=== PATIENT | male | born 1940 | race Caucasian/White ===

== ENCOUNTER 2018-04-05 19:27 | Inpatient (IN) ==
--- NOTE | 2018-04-05 19:48 | ED ---
HPI General Chief Complaint: Psychiatric Symptoms Stated Complaint: Psych eval [facility] Time Seen by Provider: 04/05/18 19:44 Source: patient and police Mode of arrival: ambulatory Limitations: no limitations History of Present Illness HPI Narrative: Patient presents to our facility under a [place] act by the police department. Patient has a history of dementia and PTSD. Ger got into an argument with his and told his that he was going to shoot himself in the face with a gun. Patient has access to multiple guns at his house. States that his took away his shotgun ger complaint: Reports suicidal ideation Onset (ago): hour(s) (3) Duration: constant History of same: No Relieving factors: none Exacerbating factors: none Context: Denies recent alcohol abuse, recent drug abuse and not taking psychiatric medications Associated psychiatric symptoms: Reports none Associated symptoms: Reports denies other symptoms Treatments prior to arrival: Reports none Related Data Home Medications Medication Instructions Recorded Confirmed amlodipine 5 mg PO BID 04/05/18 04/05/18 carbamazepine (mood stabiliz) 100 mg PO BID 04/05/18 04/05/18 febuxostat 40 mg PO DAILY 04/05/18 04/05/18 gabapentin 300 mg PO HS 04/05/18 04/05/18 glipizide 10 mg PO DAILY 04/05/18 04/05/18 isosorbide mononitrate 30 mg PO DAILY 04/05/18 04/05/18 lorazepam [Ativan] 0.5 mg PO Q4HR 04/05/18 04/05/18 pantoprazole 40 mg PO BID 04/05/18 04/05/18 psyllium husk [Metamucil] 0.4 g PO DAILY 04/05/18 04/05/18 sotalol 80 mg PO BID 04/05/18 04/05/18 warfarin 4 mg PO 2XWEEK 04/05/18 04/05/18 warfarin 6 mg PO 5XW 04/05/18 04/05/18 Allergies Allergy/AdvReac Type Severity Reaction Status Date / Time gemfibrozil Allergy Cramping Verified 04/05/18 20:16 of the Muscles niacin Allergy Tingling Verified 04/05/18 19:43 [From Niaspan Extended-Release] quetiapine Allergy Agitation Verified 04/05/18 20:16 donepezil [From Aricept] AdvReac Gastrointestinal Verified 04/05/18 20:43 Upset [facility] Medical History Medical History Afib (Acute) Cataract of both eyes (Acute) Hypertension (Acute) Kidney stones (Acute) Melanoma (Acute) Pacemaker (Acute) Transfusion history (Acute) Surgical History Surgical History H/O cardiac radiofrequency ablation (Acute) History of abdominal surgery (Acute) History of bilateral knee replacement (Acute) Social History Social History Substance History: No History of Abuse Second Hand Smoke Exposure: No Smoking Status: Never smoker How Often Do You Have a Drink Containing Alcohol: Never Recent Travel in [facility] within the Last 8 Weeks: No Recent Out of Country Travel within the Last 8 Weeks: No Exam HENMT Head: normocephalic and atraumatic Nose: no nasal discharge and no epistaxis Mouth: moist mucous membranes Eyes Sclera: normal sclerae Pupils: PERRL Neck Neck: trachea midline and no JVD Resp Effort & Inspection: no use of accessory muscles Auscultation: clear to auscultation bilaterally Cardio Rate: regular rate Rhythm: regular rhythm Heart Sounds: no murmurs GI Inspection: non-distended Palpation: soft, no hepatosplenomegaly and nontender Skin General: dry skin (warm) and other (superficial anterior abrasion to the right knee ) Neuro General: alert and awake Cranial Nerves: other Speech: speech normal Motor: no movement abnormalities noted Extrem General: normal to inspection, no clubbing, no cyanosis and no edema Psych Mood: congruent mood Affect: normal affect Judgment: judgment good Course Initial Documented Vital Signs Temperature 98.2 F 04/05/18 19:32 Pulse Rate 67 04/05/18 19:32 Respiratory Rate 18 04/05/18 19:32 Blood Pressure 186/88 H 04/05/18 19:32 Pulse Oximetry 97 04/05/18 19:32 Last Documented Vital Signs Temperature 98.6 F 04/06/18 06:00 Pulse Rate 60 04/06/18 06:00 Respiratory Rate 18 04/06/18 06:00 Blood Pressure 119/75 04/06/18 06:00 Pulse Oximetry 97 04/06/18 06:00 Medical Decision Making MDM Narrative Medical decision making narrative: Patient presents to our facility under a [place] act by the police department. Patient has a history of dementia and PTSD. Ger got into an argument with his and told his that he was going to shoot himself in the face with a gun. Patient has access to multiple guns at his house. States that his took away his shotgun tonight Patient is a blood pressure of 119/75, pulse is 60, temperature is 98.6, O2 sat is 97 on room air physcial exam is unremarkable except for patient has a superficial abrasion to the right knee that he states happened while getting into the police officers car Patient received basic lab work along with a urine drug tox screen Lab work is unremarkable. Patient is medically cleared at 2330 Medical Screen Exam Complete: Yes Emergency Medical Condition: Yes Lab Data Lab results reviewed: Yes I reviewed the patient's lab results. Result diagrams: 04/05/18 19:45 04/05/18 19:45 Lab Results 04/05/18 04/05/18 04/05/18 Range/Units 19:45 19:45 19:45 WBC 5.0 (4.0-11.0) th/mm3 RBC 5.06 (4.50-5.90) mil/mm3 Hgb 16.0 (13.0-17.0) gm/dL Hct 45.0 (39.0-51.0) % MCV 89.0 (80.0-100.0) fL MCH 31.7 (27.0-34.0) pg MCHC 35.6 (32.0-36.0) % RDW 14.1 (11.6-17.2) % Plt Count 187 (150-450) th/mm3 MPV 8.0 (7.0-11.0) fL Neut % (Auto) 52.1 (16.0-70.0) % Lymph % (Auto) 36.3 (9.0-44.0) % [place] % (Auto) 7.3 (0.0-8.0) % Eos % (Auto) 2.8 (0.0-4.0) % Baso % (Auto) 1.5 (0.0-2.0) % Neut # (Auto) 2.6 (1.8-7.7) th/mm3 Lymph # (Auto) 1.8 (1.0-4.8) th/mm3 [place] # (Auto) 0.4 (0.0-0.9) th/mm3 Eos # (Auto) 0.1 (0.0-0.4) th/mm3 Baso # (Auto) 0.1 (0.0-0.2) th/mm3 WBC Differential . Differential Comment Auto diff final PT (9.8-11.6) sec INR Ratio APTT (23.4-31.7) sec Sodium 137 (136-145) meq/L Potassium 4.6 (3.5-5.1) meq/L Chloride 101 (98-107) meq/L Carbon Dioxide 30.1 (21.0-32.0) meq/L Anion Gap 6 (5-15) meq/L BUN 18 (7-18) mg/dL Creatinine 1.59 H (0.60-1.30) mg/dL Estimated GFR 42 L (>89) mL/min Random Glucose 103 (74-106) mg/dL Calcium 10.1 (8.5-10.1) mg/dL Magnesium 1.9 (1.5-2.5) mg/dL Total Bilirubin 0.5 (0.2-1.0) mg/dL AST 32 (15-37) U/L ALT 21 (12-78) U/L Alkaline Phosphatase 77 (45-117) U/L Total Protein 8.6 H (6.4-8.2) g/dL Albumin 4.4 (3.4-5.0) g/dL TSH 9.210 H (0.358-3.740) uIU/mL Salicylates Less than 1.7 L (2.8-20.0) mg/dL Urine Opiates Screen (Neg) Acetaminophen Less than 2.0 L (10.0-30.0) mcg/mL Ur Barbiturates Screen (Neg) Ur Amphetamines Screen (Neg) U Benzodiazepines Scrn (Neg) Urine Cocaine Screen (Neg) U Cannabinoids Screen (Neg) Serum Alcohol Less than 3 (0-5) mg/dL 04/05/18 04/05/18 Range/Units 19:45 21:35 WBC (4.0-11.0) th/mm3 RBC (4.50-5.90) mil/mm3 Hgb (13.0-17.0) gm/dL Hct (39.0-51.0) % MCV (80.0-100.0) fL MCH (27.0-34.0) pg MCHC (32.0-36.0) % RDW (11.6-17.2) % Plt Count (150-450) th/mm3 MPV (7.0-11.0) fL Neut % (Auto) (16.0-70.0) % Lymph % (Auto) (9.0-44.0) % [place] % (Auto) (0.0-8.0) % Eos % (Auto) (0.0-4.0) % Baso % (Auto) (0.0-2.0) % Neut # (Auto) (1.8-7.7) th/mm3 Lymph # (Auto) (1.0-4.8) th/mm3 [place] # (Auto) (0.0-0.9) th/mm3 Eos # (Auto) (0.0-0.4) th/mm3 Baso # (Auto) (0.0-0.2) th/mm3 WBC Differential Differential Comment PT 25.6 H (9.8-11.6) sec INR 2.5 Ratio APTT 39.4 H (23.4-31.7) sec Sodium (136-145) meq/L Potassium (3.5-5.1) meq/L Chloride (98-107) meq/L Carbon Dioxide (21.0-32.0) meq/L Anion Gap (5-15) meq/L BUN (7-18) mg/dL Creatinine (0.60-1.30) mg/dL Estimated GFR (>89) mL/min Random Glucose (74-106) mg/dL Calcium (8.5-10.1) mg/dL Magnesium (1.5-2.5) mg/dL Total Bilirubin (0.2-1.0) mg/dL AST (15-37) U/L ALT (12-78) U/L Alkaline Phosphatase (45-117) U/L Total Protein (6.4-8.2) g/dL Albumin (3.4-5.0) g/dL TSH (0.358-3.740) uIU/mL Salicylates (2.8-20.0) mg/dL Urine Opiates Screen Neg (Neg) Acetaminophen (10.0-30.0) mcg/mL Ur Barbiturates Screen Neg (Neg) Ur Amphetamines Screen Neg (Neg) U Benzodiazepines Scrn Neg (Neg) Urine Cocaine Screen Neg (Neg) U Cannabinoids Screen Neg (Neg) Serum Alcohol (0-5) mg/dL Discharge Plan Discharge Disposition Patient Disposition: Sign Out(ED Internal Use Only) Discharge Condition Condition: Stable Discharge Order Discharge Orders: ED Use Only Admit Order (Routine); Ordered 04/05/18 Ordered By: Law Mckinley Discharge Details Diagnosis: Suicidal ideation, Post traumatic stress disorder (PTSD) Physicians Team ED Provider: Osmel Brandt ED Midlevel Provider: Khushi Phillips Primary Care Provider: [facility],Physician 's Attending Provider: Law Mckinley Other Providers: Kelsie Carter Discharge Interventions Interventions: Vital Signs Last Done: 04/05/18 23:29 ED Discharge Assessment Last Done: 04/06/18 00:08 Status ED Status: Left Department Discharge Information Discharge Date/Time: 04/06/18 00:09
[2018-04-05 20:53] LABS: Baso # (Auto) 0.1 th/mm3 (0.0-0.2); Baso % (Auto) 1.5 % (0.0-2.0); Eos # (Auto) 0.1 th/mm3 (0.0-0.4); Eos % (Auto) 2.8 % (0.0-4.0); Lymph # (Auto) 1.8 th/mm3 (1.0-4.8); Lymph % (Auto) 36.3 % (9.0-44.0); Mean Corpuscular HGB Conc 35.6 % (32.0-36.0); Mean Corpuscular Hemoglobin 31.7 pg (27.0-34.0); Mono # (Auto) 0.4 th/mm3 (0.0-0.9); Mono % (Auto) 7.3 % (0.0-8.0); Neut # (Auto) 2.6 th/mm3 (1.8-7.7); Neut % (Auto) 52.1 % (16.0-70.0); Platelet Count 187 th/mm3 (150-450); Red Blood Count 5.06 mil/mm3 (4.50-5.90); Red Cell Distribution Width 14.1 % (11.6-17.2)
[2018-04-05 21:05] LABS: Amphetamine Screen,Urine Neg (Neg); Barbiturate Screen,Urine Neg (Neg); Cannabinoid Screen,Urine Neg (Neg); Cocaine Screen,Urine Neg (Neg)
[2018-04-05 21:08] LABS: Opiate Screen,Urine Neg (Neg)
[2018-04-05 21:14] LABS: Alanine Aminotransferase 21 U/L (12-78)
[2018-04-05 21:22] LABS: Alkaline Phosphatase 77 U/L (45-117); Total Protein 8.6 g/dL (6.4-8.2)
[2018-04-05 21:56] LABS: Albumin 4.4 g/dL (3.4-5.0); Anion Gap 6 meq/L (5-15); Aspartate Aminotransferase 32 U/L (15-37); Blood Urea Nitrogen 18 mg/dL (7-18); Calcium 10.1 mg/dL (8.5-10.1); Carbon Dioxide 30.1 meq/L (21.0-32.0); Chloride 101 meq/L (98-107); Glomerular Filtration Rate 42 mL/min (>89); Glucose,Random 103 mg/dL (74-106); Magnesium 1.9 mg/dL (1.5-2.5); Potassium 4.6 meq/L (3.5-5.1); Sodium 137 meq/L (136-145)
[2018-04-05 22:09] LABS: Activated Partial Thrombo Time 39.4 sec (23.4-31.7); INR 2.5 Ratio; Prothrombin Time 25.6 sec (9.8-11.6)
[2018-04-06] MEDS ORDERED: Acetaminophen 325 MG Tablet PO PRN (02:26)
[2018-04-06] MEDS ORDERED: Aluminum/Magnesium/Simethacone Susp 30 ML UDC PO PRN (02:26)
[2018-04-06 07:24] LABS: Carbamazepine (Tegretol) 5.4 mcg/mL (4.0-12.0); Chol/HDL Ratio 8.39 Ratio
[2018-04-06] MEDS: glipiZIDE 10 MG Tablet PO SCH (08:49)
[2018-04-06] MEDS: amLODIPine 5 MG Tablet PO SCH ×2 (08:49→20:15)
[2018-04-06] MEDS: Psyllium Husk SF 3.4 GM in 5.8 GM Packet PO SCH (08:50)
[2018-04-06] MEDS: Isosorbide Mononitrate 30 MG ER 24HR Tablet (Imdur) PO SCH (09:28)
[2018-04-06 09:40] LABS: Hemoglobin A1c 5.8 % (4.3-6.0)
--- NOTE | 2018-04-06 13:21 | P.HPPSY ---
Provisional Diagnosis Admission Date: April 05, 2018 23:26 Competence Certification of Person's Competence To Provide Express and Informed Consent I have personally examined Ace Valente, a person being served at [facility] on, April 06, 2018 1315. Express and informed consent means consent voluntarily given in writing, by a competent person, after sufficient explanation and disclosure of the subject matter involved to enable the person to make a knowing and willful decision without any element of force, fraud, deceit, duress, or other form of constraint or coercion. This person is 18 years of age or older, is not now known to be incompetent to consent to treatment with a guardian advocate, and does not have a health care surrogate or proxy currently making medical treatment decisions. I have found this person to be one of the following: [X] Competent to provide express and informed consent, as defined above, for voluntary admission to this facility and is competent to provide express and informed consent for treatment. He/she has the consistent capacity to make well reasoned, willful, and knowing decisions concerning his or her medical or mental health treatment. The person fully and consistently understands the purpose of the admission for examination/placement and is fully capable of personally exercising all rights assured [place] Incompetent to provide express and informed consent to voluntary admission, and this is incompetent to provide express and informed consent to treatment. The person must be transferred to involuntary status and a petition for a guardian advocate filed with the Circuit Court. [] Refusing to provide express and informed consent to voluntary admission but is competent to provide express and informed consent for treatment. The person must be discharged or transferred to involuntary status. Form shall be completed within 24 hours of a person's arrival at the receiving facility and filed in the clinical record of each person: 1. Admitted on a voluntary basis 2. Permitted to provide express and informed consent to his/her own treatment 3. Allowed to transfer from involuntary to voluntary status 4. Prior to permitting a person to consent to his or her own treatment after having been previously found incompetent to consent to treatment. History of Present Illness Capacity: Has capacity Chief Complaint: SI History of Present Illness: Patient is a 78-year-old with a history of mood, anxiety, and unspecified dementia. Patient is here Via [place] act after he made threats to shoot himself with a loaded shotgun. Patient says that he was arguing with his about minutia such as spilled water and table cloths which escalated into her saying that it would be better off if he were . Patient went to get a shot gun and his subsequently called the police. Patient denies having pointed the shotgun at himself or her. Patient describes a recent sad mood. Sleep has been variable. However, he denies recent suicidal or homicidal ideation intent or plan. Patient says he has been tested for dementia and that has been confirmed. Though, he appears oriented and remembers the events of his admission. Patient is also complaining of "anger problems." He says he is been irritable. He is complaining of posttraumatic stress symptoms such as flashbacks and nightmares Past psych: Patient sees a psychiatrist at the [place]. However, he says he is not on any medications and his did not provide any medications on his list of medications. One previous inpatient admission for suicidal ideation. 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 He feels remorseful about his actions. Denies a history of alcohol or substance use. Patient is and has 1 brother - Inpatient Certification I certify that the inpatient services were ordered in accordance with Medicare regulations governing the order. This includes certification that hospital inpatient services are reasonable and necessary and in the case of services not specified as inpatient-only under 42 CFR 419.22(n), that they are appropriately provided as inpatient services in accordance to with the 2-midnight benchmark under 43 CFR 412.3(e) I certify that inpatient psychiatric hospital services are medically necessary. Evaluation and treatment and/or diagnostic testing are expected to improve the patient's condition. The patient needs on a daily basis, active treatment furnished directly by or requiring the supervision of inpatient psychiatric facility personnel. Estimated Total Length of Stay (Days): 7 Plans for Post Hospital Care: Not yet determined Review of Systems All other systems reviewed negative except as stated in HPI PMFSH - History History Provided By: Patient - Medical History Medical History: Medical History (Last Reviewed 04/06/18 @ 13:20 by Jarred Guillaume DO) Afib Cataract of both eyes Hypertension Kidney stones Melanoma Pacemaker Transfusion history - Surgical History Surgical History: Surgical History (Last Reviewed 04/06/18 @ 13:20 by Jarred Guillaume DO) H/O cardiac radiofrequency ablation History of abdominal surgery History of bilateral knee replacement - Tobacco History Second Hand Smoke Exposure: No Tobacco Use In Past 30 Days: No Smoking Status: Never smoker - Alcohol History How Often Do You Have a Drink Containing Alcohol: Never - Substance Use History Substance History: No History of Abuse - Travel History Recent Travel in the [place] Within the Last 8 Weeks: No Recent Travel Out of the Country Within the Last 8 Weeks: No - Immunization History Tetanus Immunization: Unsure Hx Influenza Vaccine This Season: Yes Medications and Allergies Active Medications: Active Medications Acetaminophen (Tylenol) 650 mg PO Q4H PRN PRN Reason: Pain 1-5 or Temp >101F Al Hydrox/Mg Hydrox/Simethicone (Mag-Al Plus Susp Liq) 30 ml PO Q6H PRN PRN Reason: DYSPEPSIA Al Hydroxide/Mg Hydroxide (Milk Of Magnesia Liq) 30 ml PO Q12H PRN PRN Reason: Mild Constipation Amlodipine Besylate (Norvasc) 5 mg PO BID [facility] Last Admin: 04/06/18 08:49 Dose: 5 mg Carbamazepine (Tegretol) 100 mg PO HS [facility]O Diphenhydramine HCl (Benadryl) 50 mg PO HS PRN PRN Reason: INSOMNIA Diphenhydramine HCl (Benadryl Inj) 50 mg IM HS PRN PRN Reason: INSOMNIA Gabapentin (Neurontin) 300 mg PO HS HERNANDO Glipizide (Glucotrol) 10 mg PO DAILY [facility] Last Admin: 04/06/18 08:49 Dose: 10 mg Hydroxyzine HCl (Atarax) 50 mg PO Q6H PRN PRN Reason: ANXIETY Isosorbide Mononitrate (Imdur) 30 mg PO DAILY [facility] Last Admin: 04/06/18 09:28 Dose: 30 mg Pantoprazole Sodium (Protonix) 40 mg PO BID [facility] Last Admin: 04/06/18 08:50 Dose: 40 mg Patient Own Medication[Uloric( Febuxostat)] 40 Mg 0 each PO DAILY [facility] Psyllium Hydrophilic Mucilloid (Metamucil Fiber Sf Pkt) 1 pack PO DAILY [facility] Last Admin: 04/06/18 08:50 Dose: 1 pack Sotalol HCl (Betapace) 80 mg PO BID [facility] Last Admin: 04/06/18 08:48 Dose: 80 mg Warfarin Sodium (Coumadin) 4 mg PO MoFr@1600 HERNANDO Warfarin Sodium (Coumadin) 6 mg PO SuTuWeThSa@1600 HERNANDO Allergies Allergy/AdvReac Type Severity Reaction Status Date / Time gemfibrozil Allergy Cramping Verified 04/05/18 20:16 of the Muscles niacin Allergy Tingling Verified 04/05/18 19:43 [From Niaspan Extended-Release] quetiapine Allergy Agitation Verified 04/05/18 20:16 donepezil [From Aricept] AdvReac Gastrointestinal Verified 04/05/18 20:43 Upset Home Medications Medication Instructions Recorded Confirmed Type amlodipine 5 mg PO BID 04/05/18 04/05/18 History carbamazepine (mood stabiliz) 100 mg PO BID 04/05/18 04/05/18 History febuxostat 40 mg PO DAILY 04/05/18 04/05/18 History gabapentin 300 mg PO HS 04/05/18 04/05/18 History glipizide 10 mg PO DAILY 04/05/18 04/05/18 History isosorbide mononitrate 30 mg PO DAILY 04/05/18 04/05/18 History lorazepam [Ativan] 0.5 mg PO Q4HR 04/05/18 04/05/18 History pantoprazole 40 mg PO BID 04/05/18 04/05/18 History psyllium husk [Metamucil] 0.4 g PO DAILY 04/05/18 04/05/18 History sotalol 80 mg PO BID 04/05/18 04/05/18 History warfarin 4 mg PO 2XWEEK 04/05/18 04/05/18 History warfarin 6 mg PO 5XW 04/05/18 04/05/18 History Results - Labs CBC & Chem 7: 04/05/18 19:45 04/05/18 19:45 Labs: Laboratory Results - last 24 hr 04/05/18 04/05/18 04/05/18 19:45 19:45 19:45 WBC 5.0 RBC 5.06 Hgb 16.0 Hct 45.0 MCV 89.0 MCH 31.7 MCHC 35.6 RDW 14.1 Plt Count 187 MPV 8.0 Neut % (Auto) 52.1 Lymph % (Auto) 36.3 [place] % (Auto) 7.3 Eos % (Auto) 2.8 Baso % (Auto) 1.5 Neut # (Auto) 2.6 Lymph # (Auto) 1.8 [place] # (Auto) 0.4 Eos # (Auto) 0.1 Baso # (Auto) 0.1 WBC Differential . Differential Comment Auto diff final PT INR APTT Sodium 137 Potassium 4.6 Chloride 101 Carbon Dioxide 30.1 Anion Gap 6 BUN 18 Creatinine 1.59 H Estimated GFR 42 L Random Glucose 103 Hemoglobin A1c Calcium 10.1 Magnesium 1.9 Total Bilirubin 0.5 AST 32 ALT 21 Alkaline Phosphatase 77 Total Protein 8.6 H Albumin 4.4 Triglycerides Cholesterol LDL Cholesterol, Calc HDL Cholesterol Cholesterol/HDL Ratio TSH 9.210 H Salicylates Less than 1.7 L Urine Opiates Screen Acetaminophen Less than 2.0 L Ur Barbiturates Screen Carbamazepine Ur Amphetamines Screen U Benzodiazepines Scrn Urine Cocaine Screen U Cannabinoids Screen Serum Alcohol Less than 3 04/05/18 04/05/18 04/06/18 19:45 21:35 06:02 WBC RBC Hgb Hct MCV MCH MCHC RDW Plt Count MPV Neut % (Auto) Lymph % (Auto) [place] % (Auto) Eos % (Auto) Baso % (Auto) Neut # (Auto) Lymph # (Auto) [place] # (Auto) Eos # (Auto) Baso # (Auto) WBC Differential Differential Comment PT 25.6 H INR 2.5 APTT 39.4 H Sodium Potassium Chloride Carbon Dioxide Anion Gap BUN Creatinine Estimated GFR Random Glucose Hemoglobin A1c 5.8 Calcium Magnesium Total Bilirubin AST ALT Alkaline Phosphatase Total Protein Albumin Triglycerides Cholesterol LDL Cholesterol, Calc HDL Cholesterol Cholesterol/HDL Ratio TSH Salicylates Urine Opiates Screen Neg Acetaminophen Ur Barbiturates Screen Neg Carbamazepine Ur Amphetamines Screen Neg U Benzodiazepines Scrn Neg Urine Cocaine Screen Neg U Cannabinoids Screen Neg Serum Alcohol 04/06/18 06:02 WBC RBC Hgb Hct MCV MCH MCHC RDW Plt Count MPV Neut % (Auto) Lymph % (Auto) [place] % (Auto) Eos % (Auto) Baso % (Auto) Neut # (Auto) Lymph # (Auto) [place] # (Auto) Eos # (Auto) Baso # (Auto) WBC Differential Differential Comment PT INR APTT Sodium Potassium Chloride Carbon Dioxide Anion Gap BUN Creatinine Estimated GFR Random Glucose Hemoglobin A1c Calcium Magnesium Total Bilirubin AST ALT Alkaline Phosphatase Total Protein Albumin Triglycerides 478 H Cholesterol 235 H LDL Cholesterol, Calc HDL Cholesterol 28.0 L Cholesterol/HDL Ratio 8.39 TSH Salicylates Urine Opiates Screen Acetaminophen Ur Barbiturates Screen Carbamazepine 5.4 Ur Amphetamines Screen U Benzodiazepines Scrn Urine Cocaine Screen U Cannabinoids Screen Serum Alcohol Exam Vital signs: Vital Signs 04/05/18 19:32 04/05/18 22:30 04/05/18 23:29 Temperature 98.2 F Pulse Rate 67 60 60 Respiratory Rate 18 16 16 Blood Pressure 186/88 H 154/82 H 116/69 Pulse Oximetry 97 98 97 04/06/18 00:28 04/06/18 06:00 Temperature 98.8 F 98.6 F Pulse Rate 62 60 Respiratory Rate 18 18 Blood Pressure 154/82 H 119/75 Pulse Oximetry 98 97 Intake & Output 04/05/18 04/06/18 04/06/18 18:59 06:59 18:59 Weight 100 kg Other: Weight On Admission 4.32 kg Mental Status Examination Appearance: Appropriate Consciousness: Alert Orientation: x4 Motor Activity: Normal gait Speech: Unremarkable Language: Adequate Fund of Knowledge: Adequate Attention and Concentration: Adequate Memory: Unremarkable Mood: Appropriate Affect: Appropriate Thought Process & Associations: Intact Thought Content: Appropriate Hallucination Type: None Delusion Type: None Suicidal Ideation: Yes (Before admission, denies today) Suicidal Plan: No Suicidal Intention: No Homicidal Ideation: No Homicidal Plan: No Homicidal Intention: No Insight: Fair Judgment: Impulsive Assessment and Plan - Assessment (1) Dementia with behavioral disturbance Code(s): F03.91 - Unspecified dementia with behavioral disturbance Status: Acute (2) Post traumatic stress disorder (PTSD) Code(s): F43.10 - Post-traumatic stress disorder, unspecified Status: Acute - Plan Plan: Medical consult placed. Given that the majority of SSRIs and SSRIs can increase PT/INR, we will not start any until a medical consult is completed. May sign voluntary. Justification for Continued Inpatient Stay: Patient would decompensate in a less restrictive setting
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
[2018-04-06] MEDS ORDERED: Warfarin Consult Pharmacy OTHER PRN (16:40)
[2018-04-06 17:16] LABS: INR 2.1 Ratio; Prothrombin Time 21.3 sec (9.8-11.6)
[2018-04-06] MEDS: carBAMazepine 200 MG Tablet PO SCH (20:14)
[2018-04-06] MEDS: Gabapentin 300 MG Capsule PO SCH (20:15)
[2018-04-07 05:51] VITALS: O2SAT 96
[2018-04-07] MEDS: amLODIPine 5 MG Tablet PO SCH ×2 (08:22→20:22)
[2018-04-07] MEDS: Psyllium Husk SF 3.4 GM in 5.8 GM Packet PO SCH (08:22)
[2018-04-07] MEDS: Isosorbide Mononitrate 30 MG ER 24HR Tablet (Imdur) PO SCH (08:22)
[2018-04-07] MEDS: glipiZIDE 10 MG Tablet PO SCH (08:22)
[2018-04-07 08:52] LABS: Baso # (Auto) 0.1 th/mm3 (0.0-0.2); Baso % (Auto) 2.4 % (0.0-2.0); Eos # (Auto) 0.1 th/mm3 (0.0-0.4); Eos % (Auto) 2.8 % (0.0-4.0); Hematocrit 42.4 % (39.0-51.0); Hemoglobin 15.2 gm/dL (13.0-17.0); Lymph # (Auto) 1.2 th/mm3 (1.0-4.8); Lymph % (Auto) 30.3 % (9.0-44.0); Mean Corpuscular HGB Conc 35.9 % (32.0-36.0); Mean Platelet Volume 7.4 fL (7.0-11.0); Mono # (Auto) 0.3 th/mm3 (0.0-0.9); Mono % (Auto) 7.6 % (0.0-8.0); Neut # (Auto) 2.3 th/mm3 (1.8-7.7); Neut % (Auto) 56.9 % (16.0-70.0); Platelet Count 146 th/mm3 (150-450); Red Blood Count 4.76 mil/mm3 (4.50-5.90); Red Cell Distribution Width 13.9 % (11.6-17.2)
[2018-04-07 08:59] LABS: INR 2.1 Ratio; Prothrombin Time 21.7 sec (9.8-11.6)
[2018-04-07] MEDS ORDERED: FEBUXOSTAT 40 MG PO SCH (09:00)
[2018-04-07] MEDS ORDERED: FEBUXOSTAT PO SCH (09:00)
[2018-04-07 09:17] LABS: Anion Gap 7 meq/L (5-15); Aspartate Aminotransferase 19 U/L (15-37); Blood Urea Nitrogen 20 mg/dL (7-18); Calcium 9.8 mg/dL (8.5-10.1); Carbon Dioxide 28.9 meq/L (21.0-32.0); Chloride 102 meq/L (98-107); Glomerular Filtration Rate 38 mL/min (>89); Glucose,Random 160 mg/dL (74-106); Potassium 4.5 meq/L (3.5-5.1); Sodium 138 meq/L (136-145)
[2018-04-07 09:28] LABS: Alanine Aminotransferase 20 U/L (12-78); Alkaline Phosphatase 72 U/L (45-117); Free T4 (Free Thyroxine) 0.77 ng/dL (0.76-1.46); Total Protein 7.8 g/dL (6.4-8.2)
--- NOTE | 2018-04-07 10:13 | P.PNPSY ---
Subjective Chief Complaint: SI Remarks: Reviewed electronic medical record and discussed with nurse. Rounded with SAJI Michael. Patient in common area and upset because he does not have his hearing aids. Patient has been talking with his on the phone. He endorses no suicidal or homicidal ideology. He is asking for an antidepressant. Hospitalist have seen patient and his INR is therapuetic. On 04/05/18 PT = 25.6 and INR 2.5 and then on 04/07/18 his PT = 21.7 and INR = 2.1 . In reviewing medication list patient is also on Sotalol which can also interact with antidepressants. In light of Dr. Guillaume's note and current medications will defer to Psychiatrist in am to review the addition of an antidepressant. Patient is talking about starting Zoloft. I attempted to call his New at [phone] to determine if he has been on mental health medications in the past, but was unable to reach her. Review of Systems All other systems reviewed negative except as stated in HPI Mental Status Examination Appearance: Appropriate Consciousness: Alert Orientation: x4 Motor Activity: Normal gait Speech: Unremarkable Language: Adequate Fund of Knowledge: Adequate Attention and Concentration: Adequate Memory: Unremarkable Mood: Appropriate Affect: Appropriate Thought Process & Associations: Intact Thought Content: Appropriate Hallucination Type: None Delusion Type: None Suicidal Ideation: Yes (Before admission, denies today) Suicidal Plan: No Suicidal Intention: No Homicidal Ideation: No Homicidal Plan: No Homicidal Intention: No Insight: Fair Judgment: Impulsive Assessment and Plan - Assessment (1) Dementia with behavioral disturbance Code(s): F03.91 - Unspecified dementia with behavioral disturbance Status: Acute - Plan Plan: 04/07/18 On 04/05/18 PT = 25.6 and INR 2.5 and then on 04/07/18 his PT = 21.7 and INR = 2.1 . In reviewing medication list patient is also on Sotalol which can also interact with antidepressants. In light of Dr. Guillaume's note and current medications will defer to Psychiatrist in am to review the addition of an antidepressant. 04/06/18 Medical consult placed. Given that the majority of SSRIs and SSRIs can increase PT/INR, we will not start any until a medical consult is completed. May sign voluntary. Justification for Continued Inpatient Stay: Moving patient to a less restrictive environment may result in his decompensation.
[2018-04-07] MEDS ORDERED: Warfarin Consult Pharmacy OTHER PRN (10:47)
[2018-04-07] MEDS ORDERED: [UNRECOGNIZED DRUG - REMARK] OTHER SCH (12:00)
[2018-04-07] MEDS: Sertraline 50 MG Tablet PO SCH (12:09)
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
[2018-04-07 17:44] VITALS: PULSE 60; RESP 20
[2018-04-07] MEDS: Gabapentin 300 MG Capsule PO SCH (20:22)
[2018-04-07] MEDS: carBAMazepine 200 MG Tablet PO SCH (20:23)
[2018-04-08 05:41] VITALS: BP 136/61; TEMP 98.1
[2018-04-08] MEDS: glipiZIDE 10 MG Tablet PO SCH (09:58)
[2018-04-08] MEDS: Psyllium Husk SF 3.4 GM in 5.8 GM Packet PO SCH (09:58)
[2018-04-08] MEDS: amLODIPine 5 MG Tablet PO SCH (09:58)
[2018-04-08] MEDS: Sertraline 50 MG Tablet PO SCH (09:58)
[2018-04-08] MEDS: Isosorbide Mononitrate 30 MG ER 24HR Tablet (Imdur) PO SCH (09:58)
[2018-04-08 09:59] LABS: Prothrombin Time 20.2 sec (9.8-11.6)
[2018-04-08 10:29] LABS: Calcium 9.6 mg/dL (8.5-10.1); Carbon Dioxide 31.5 meq/L (21.0-32.0)
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
--- NOTE | 2018-04-08 15:53 | US ---
EXAM DATE: 04/08/2018 3:48 PM EST AGE/SEX: 78 years / Male INDICATIONS: Increased lab values. CLINICAL DATA: This is the patient's initial encounter. Patient reports that signs and symptoms have been present for 1 day and indicates a pain score of 0/10. MEDICAL/SURGICAL HISTORY: Diabetes. Hypertension. Osteoarthritis. Atrial fibrillation. Kidne y stones. Melanoma. Pacemaker. . Cardiac ablation. Abdominal surgery. Bilateral knee replacement. Ca rdiac pacemaker placement. COMPARISON: No prior exams available for comparison. MEASUREMENTS: Right Kidney:__10.1 x 4.9 x 5.5 cm Left Kidney:__10.0 x 4.9 x 4.9 cm FINDINGS: Right Kidney: Increased echogenicity. No mass or hydronephrosis. There is a cyst along the upper pole measuring 1.8 cm. There is a cyst along the lower pole measuring 9 mm. Left Kidney: Increased echogenicity. No mass or hydronephrosis. Bladder: Within normal limits given the degree of distension. Other: None. CONCLUSION: 1. There is some increased echogenicity of the renal parenchyma bilaterally. This can be seen with c hronic medical renal disease. 2. No evidence of hydronephrosis. 3. A few benign cysts associated with the right kidney. Electronically signed by: Everett Torres MD Board Certified Radiologist 04/08/2018 3:51 PM EST
== END 2018-04-08 17:00 | disposition home or self-care (01) ==
LOC: NEPD 19:27 → NEDA 23:26 → H260 23:58
PROVIDERS: ADMIT Psychiatry & Neurology Psychiatry; ATTEND Psychiatry & Neurology Psychiatry